=== PATIENT | female | born 1975 | race Caucasian/White ===

== ENCOUNTER 2019-06-20 06:51 | Day surgery (SDC) | payer OTHER ==
[2019-06-20] MEDS ORDERED: Midazolam HCl 2 mg/2 ml Vial ONE ×2 (08:31→09:47)
[2019-06-20] MEDS ORDERED: Lidocaine 1% w/Epinephrine 1:100K 20 ML VIAL ONE ×2 (09:30→09:37)
[2019-06-20] MEDS ORDERED: Fentanyl 100 MCG/2 ML VIAL ONE (09:47)
[2019-06-20] MEDS ORDERED: Ondansetron PF 4 MG/2 ML Vial ONE (10:25)
[2019-06-20] MEDS ORDERED: Promethazine HCl 25 MG/ML VIAL ONE (10:36)
--- NOTE | 2019-06-20 13:01 | OP ---
DATE OF PROCEDURE: 06/20/2019 PREOPERATIVE DIAGNOSIS: Right carpal tunnel syndrome. POSTOPERATIVE DIAGNOSIS: Right carpal tunnel syndrome. PROCEDURE PERFORMED: Right open carpal tunnel release. ANESTHESIOLOGIST: Coral Michelle MD ANESTHESIA: The patient received a TIVA and 7 mL of lidocaine 1% with epinephrine. ESTIMATED BLOOD LOSS: Less than 10 mL. TOURNIQUET TIME: 3 minutes at 250 mmHg. ANTIBIOTICS: Ancef 2 g. COMPLICATIONS: None. HISTORY OF PRESENT ILLNESS: Ms. Ann is a 43-year-old female with right carpal tunnel syndrome. I discussed the risks and benefits of open carpal tunnel release including pain, scar, bleeding, infection damage to vital structures, decreased range of motion and strength, continued pain despite surgical intervention, the patient understood the risks and benefits and elected to proceed. DESCRIPTION OF PROCEDURE: Time-out was performed designating the patient's right upper extremity as the operative site based on site, consents, and marking. After time-out, the patient's right upper extremity was prepped and draped in sterile fashion. I made a wheal and injected 2 mL in line with the incision, which is proximal to the Beckman's cardinal line down through the skin on the radial border of the fourth ray. Dissected down through skin. I came down to the palmar fascia, dissected the palmar fascia, came down to the palmaris brevis and the transverse carpal ligament, dissected through with the 15 blade and released to ensure there was proximal release. We washed, let the tourniquet down to 3 minutes, closed with 5-0 nylon horizontal mattress stitches. Injected 4 more mL, total of 6, of 1% lidocaine with epinephrine. I placed soft tissue dressing. The patient will be discharged to her facility. Take Tylenol No. 3. Follow up with me in 2 weeks for suture removal. Job ID: [id number]
[2019-06-20] MEDS ORDERED: PROPOFOL 200 MG/20 ML VIAL ONE (15:34)
== END 2019-06-20 12:10 | disposition home or self-care (01) ==
LOC: SDC 06:51
PROVIDERS: ATTEND Orthopaedic Surgery
PROC: 01N50ZZ Release Median Nerve, Open Approach (ICD-10-PCS; principal; 2019-06-20)
DX: G56.01 Carpal tunnel syndrome, right upper limb (principal); K21.9 Gastro-esophageal reflux disease without esophagitis; F17.200 Nicotine dependence, unspecified, uncomplicated
CPT/HCPCS: J0690; J2250; J2405; J2550; J2704; J3010